=== PATIENT | male | born 1970 | race Two or more races ===

== ENCOUNTER 2018-02-20 08:08 | Outpatient (CLI) | payer OTHER ==
[~2018-02-20 08:08] MED LIST: DICLOFENAC POTA50 MG PO
== END 2018-02-20 08:16 | disposition home or self-care (01) ==
LOC: RAD 501 08:08
DX: N20.0 Calculus of kidney (principal)

== ENCOUNTER 2018-08-13 09:41 | Outpatient (CLI) | payer OTHER | END 2018-08-13 09:46 | disposition home or self-care (01) | LOC: SONOGRAMA 09:41 | DX: M25.572 Pain in left ankle and joints of left foot (principal); M79.672 Pain in left foot ==

== ENCOUNTER 2022-12-06 20:39 | Emergency (ER) | payer OTHER ==
[~2022-12-06] VITALS: Ht 185.4 cm; Wt 151.0 kg
[2022-12-07] MEDS ORDERED: LEVSIN/SL0.125 MG SL (02:52)
[2022-12-07] MEDS ORDERED: ZOFRAN8 MG PO (02:52)
[2022-12-07] MEDS ORDERED: PEPCID40 MG PO ×2 (02:53)
== END 2022-12-07 03:00 ==
LOC: ER 20:39
DX: N20.1 Calculus of ureter (principal); Z87.442 Personal history of urinary calculi; K80.20 Calculus of gallbladder without cholecystitis without obstruction; K76.0 Fatty (change of) liver, not elsewhere classified

== ENCOUNTER 2023-05-31 08:05 | Outpatient (CLI) | payer OTHER ==
[~2023-05-31 08:05] MED LIST changes: +LEVSIN/SL0.125 MG SL; +PEPCID40 MG PO; +ZOFRAN8 MG PO
== END 2023-05-31 08:18 | disposition home or self-care (01) ==
LOC: RAD 08:05
PROVIDERS: ATTEND Physical Medicine & Rehabilitation
DX: S90.01XA Contusion of right ankle, initial encounter (principal)
CPT/HCPCS: 73721

== ENCOUNTER 2024-09-04 09:27 | Outpatient (CLI) | payer OTHER ==
[~2024-09-04 09:27] MED LIST changes: +AMLODIPINE-OLM1 EAC2 PO; +CHLORTHALIDONE25 MG PO; +DICLOFENAC SODI75 MG PO; +EZALLOR SPRINKL40 MG PO; +GABAPENTIN300 M2 PO; +GLUMETZA1000 MG PO; +NORFLEX100MG PO; +SYNTHROID75 MCG PO; +TOUJEO SOL300 UNIT/1 SQ; +VAZALORE81 MG PO; +ZESTRIL40 M1 PO
== END 2024-09-04 09:43 | disposition home or self-care (01) ==
LOC: MRI 09:27
PROVIDERS: ATTEND Physical Medicine & Rehabilitation
DX: M54.50 Low back pain, unspecified (principal)
CPT/HCPCS: 72158